=== PATIENT | female | born 1955 | race Caucasian/White ===

== ENCOUNTER 2017-09-15 11:19 | Day surgery (SDC) | payer BC ==
[~2017-09-15] VITALS: Ht 139.7 cm; Wt 46.8 kg
[2017-09-15] MEDS ORDERED: LISINOPRIL (11:54)
[2017-09-15] MEDS ORDERED: MAGNESIUM (11:54)
[2017-09-15] MEDS ORDERED: METFORMIN (11:54)
[2017-09-15] MEDS ORDERED: MVI (11:54)
[2017-09-15] MEDS ORDERED: LEVOTHYROXINE (11:54)
[2017-09-15] MEDS ORDERED: ESTRADIOL (11:54)
[2017-09-15] MEDS ORDERED: ALENDRONATE SODIUM (11:54)
[2017-09-15] MEDS ORDERED: PRALUENT (11:54)
[2017-09-15] MEDS ORDERED: ESTRACE CREAM (11:54)
[2017-09-15] MEDS ORDERED: DILTIAZEM (11:54)
[2017-09-15] MEDS ORDERED: VITAMIN D3 (11:54)
[2017-09-15 11:56] VITALS: Ht 139.7 cm; Wt 46.8 kg
[2017-09-15] MEDS ORDERED: FENTAnyl 50 MCG/ML VIAL ONE (12:56)
[2017-09-15] MEDS ORDERED: PROPOFOL 20 ML ONE (12:56)
[2017-09-15] MEDS ORDERED: MIDAZOLAM 1 MG/ML 2 ML INJ ONE (12:57)
[2017-09-15 13:56] VITALS: BP 120/61; RESP 14
--- NOTE | 2017-09-16 04:10 | GILP ---
DATE OF PROCEDURE: 09/15/2017 PROCEDURE: Colonoscopy. INDICATIONS: Screening. FINDINGS: After informed consent, the patient was placed in left lateral position, sedated per anes thesia. The Olympus pediatric video colonoscope was easily passed into patient's rectum. The instr ument was advanced through the sigmoid, descending, transverse, ascending colon to the cecum. The a ppendiceal orifice and ileocecal valve were identified. These appeared normal. The ileocecal valve was traversed. Normal ileum was encountered. The instrument was slowly removed through the cecum, ascending, transverse, descending and sigmoid colon. The colon was remarkable for a number of dive rticula. The preparation was good. The withdrawal time was 15 minutes. In the rectum, turnaround procedure was performed. No additional lesions were noted. The instrument was removed from the pat ient's rectum. Patient tolerated the procedure well. COMPLICATIONS: None. IMPRESSION: Diverticulosis. PLAN: 1. Postop instructions given to patient. 2. Follow up per current recommendations in terms of colonoscopy followup. Dictated By: ABDOULAYE MIDDLETON/MANUEL Conf#: [id number] DID#: [id number] CC: SHAN RODRIGUEZ MD;*EndCC*
== END 2017-09-15 16:18 | disposition home or self-care (01) ==
LOC: GIL 11:19
PROVIDERS: ATTEND Internal Medicine Gastroenterology
DX: Z12.11 Encounter for screening for malignant neoplasm of colon (principal); K57.30 Diverticulosis of large intestine without perforation or abscess without bleeding; E11.9 Type 2 diabetes mellitus without complications; E78.5 Hyperlipidemia, unspecified; I10 Essential (primary) hypertension; M81.0 Age-related osteoporosis without current pathological fracture; Z79.84 Long term (current) use of oral hypoglycemic drugs; Z88.5 Allergy status to narcotic agent; J45.909 Unspecified asthma, uncomplicated
CPT/HCPCS: 45378; J2250; J3010